=== PATIENT | male | born 2000 | race Caucasian/White ===

== ENCOUNTER 2018-08-01 18:18 | Emergency (ER) | payer BC ==
[~2018-08-01] VITALS: Ht 188 cm; Wt 88.5 kg
[~2018-08-01 18:18] MED LIST: PEPCID20 MG PO; PREDNISONE20 MG PO
[2018-08-01 18:39] LABS: BASOPHILS % 0.3 % (0.0-1.0); EOSINOPHILS # (AUTO) 0.1 (0.0-0.4); HEMATOCRIT 43.6 % (38.2-49.6); HEMOGLOBIN 15.3 g/dL (14.0-18.0); LYMPHOCYTES % 28.7 % (18.0-39.1); MEAN CORPUSCULAR HEMOGLOBIN 31.2 pg (28-32); MEAN CORPUSCULAR HGB CONC 35.1 g/dL (31-35); MONOCYTES # (AUTO) 0.5 (0.2-0.8); MONOCYTES % 7.8 % (4.4-11.3); NEUTROPHILS # (AUTO) 4.2 (2.1-6.9); NEUTROPHILS % 60.9 % (38.7-80.0); PLATELET COUNT 245 x10e3/uL (140-360); RED CELL DISTRIBUTION WIDTH 12.9 % (11.7-14.4)
[2018-08-01] MEDS ORDERED: ASPIRIN 81 MG CHEW TAB PO ONE (18:45)
[2018-08-01 18:54] LABS: ALANINE AMINOTRANSFERASE 38 IU/L (0-55); ALBUMIN 4.4 g/dL (3.5-5.0); ALBUMIN/GLOBULIN RATIO 1.1 (0.8-2.0); ALKALINE PHOSPHATASE 93 IU/L (40-150); ANION GAP 23.2 mmol/L (8-16); BLOOD UREA NITROGEN 22 mg/dL (7-26); BUN/CREATININE RATIO 27 (6-25); CALCIUM 9.7 mg/dL (8.4-10.2); CARBON DIOXIDE 18 mmol/L (22-29); CHLORIDE 100 mmol/L (98-107); CREATINE KINASE 107 IU/L (30-200); CREATININE, SERUM 0.82 mg/dL (0.72-1.25); EST GLOMERULAR FILTRATION RATE > 60 ML/MIN (60-); GLUCOSE 76 mg/dL (74-118); SODIUM 137 mmol/L (136-145)
[2018-08-01 19:08] LABS: POTASSIUM 4.2 mmol/L (3.5-5.1)
[2018-08-01] MEDS ORDERED: BELLADONNA ALK/PHENOBARBITAL 5 ML UDC PO ONE (20:45)
[2018-08-01] MEDS ORDERED: LIDOCAINE VISC 2% SOLN 15 ML UDC PO ONE (20:45)
[2018-08-01] MEDS ORDERED: MAGNESIUM/ALUMINUM/SIMETHICONE 30 ML UDC PO ONE (20:45)
[2018-08-01 21:08] LABS: CLARITY,URINE CLEAR (CLEAR); COLOR,URINE YELLOW (YELLOW); LEUKOCYTE ESTERASE ,URINE NEGATIVE (NEGATIVE); NITRITE,URINE NEGATIVE (NEGATIVE); PROTEIN,URINE DIPSTICK NEGATIVE (NEGATIVE)
[2018-08-01 21:09] LABS: BILIRUBIN,URINE NEGATIVE (NEGATIVE); KETONES,URINE NEGATIVE (NEGATIVE); URINE UROBILINOGEN 0.2 mg/dL (0.2 - 1)
[2018-08-01 21:12] LABS: AMYLASE 46 U/L (25-125); LIPASE 50 U/L (8-78)
[2018-08-01 21:12] LABS: EPITHELIAL CELLS,URINE FEW /LPF; RBC,URINE 0-5 /HPF (0-5); WBC,URINE (MAN) 0-5 /HPF (0-5)
--- NOTE | 2018-08-01 21:13 | Diagnostic Imaging Report ---
EXAM: CHEST 2 VIEWS, PA and lateral INDICATION: Pain, pressure behind sternum COMPARISON: None FINDINGS: LINES/TUBES: None LUNGS: No consolidations or edema. PLEURA: No effusions or pneumothorax. HEART AND MEDIASTINUM: Normal size and contour. BONES AND SOFT TISSUES: No acute findings. IMPRESSION: No acute thoracic abnormality. Signed by: Dr. Beth Max M.D. on 08/01/2018 9:08 PM
[2018-08-01] MEDS ORDERED: PANTOPRAZOLE 40 MG 10ML VIAL IV STA ×2 (22:49→22:50)
[2018-08-01] MEDS ORDERED: DICYCLOMINE HCL 20 MG/2 ML VIAL IM ONE ×2 (23:00)
== END 2018-08-02 00:04 | disposition home or self-care (01) ==
LOC: ER 18:18
DX: R10.13 Epigastric pain (principal); R11.0 Nausea; K29.00 Acute gastritis without bleeding
CPT/HCPCS: 36415; 71046; 80053; 81001; 82150; 82550; 82553; 83690; 84484; 85025; 93005; 96372; 96374; 99284; J0500

== ENCOUNTER 2019-05-30 20:48 | Emergency (ER) | payer BC ==
[~2019-05-30] VITALS: Ht 188 cm; Wt 88.5 kg
--- OUTSIDE RECORDS SUMMARY | 2019-05-30 20:50 | XMS REPORT ---
Author Author [facility] Address Unknown Phone Unavailable Care Team Providers Care Senior [employer] Analyst Name Role Phone Terry MONTANO Unavailable Unavailable Problems This patient has no known problems. Allergies, Adverse Reactions, Alerts This patient has no known allergies or adverse reactions. Medications This patient has no known medications. Results Test Description Test Time Test Comments Text Results Atomic Results Result Comments CHEST 2 VIEWS 2018-08-01 21:08:00 [facility] [address] [address] Patient Name: LIZETH DAY MR #: [id number] : 2000 Age/Sex: 17/M Req #: [id number] Adm Physician: Ordered by: AYDEN MONTANO MD Report #: [id number] Location: ER Room/Bed: Procedure: [id number] DX/CHEST 2 VIEWS Exam Date: 08/01/18 Exam Time: 2049 REPORT STATUS: Signed EXAM: CHEST 2 VIEWS, PA and lateral INDICATION: Pain, pressure behind sternum COMPARISON: None FINDINGS: LINES/TUBES: None LUNGS: No consolidations or edema. PLEURA: No effusions or pneumothorax. HEART AND MEDIASTINUM: Normal size and contour. BONES AND SOFT TISSUES: No acute findings. IMPRESSION: No acute thoracic abnormality. Signed by: Dr. Armand James M.D. on 08/01/2018 9:08 PM Dictated By: ARMAND JAMES MD 07 Transcribed By: AGNES on 08/01/182107 COPY TO: AYDEN MONTANO MD
[2019-05-30] MEDS ORDERED: DEXAMETHASONE SOD PHOS 10 MG/1 ML VIAL IM NR (21:30)
[2019-05-30] MEDS ORDERED: DIPHENHYDRAMINE HCL 25 MG CAP PO NR (21:30)
[2019-05-30] MEDS ORDERED: FAMOTIDINE 20 MG TAB PO NR (21:30)
[2019-05-30] MEDS ORDERED: FAMOTIDINE 20 MG TAB ONE (21:35)
[2019-05-30] MEDS ORDERED: DEXAMETHASONE SOD PHOS 10 MG/1 ML VIAL ONE (21:36)
== END 2019-05-30 22:00 | disposition home or self-care (01) ==
LOC: ER 20:48
DX: L25.5 Unspecified contact dermatitis due to plants, except food (principal)
CPT/HCPCS: 99283; J1100